=== PATIENT | female | born 1940 | race Caucasian/White ===

== ENCOUNTER 2016-07-28 22:26 | Emergency (ER) | payer OTHER ==
[~2016-07-28] VITALS: Ht 154.9 cm; Wt 90.9 kg
[~2016-07-28 22:26] MED LIST: AEROECLIPSE1 EACH MC; ALEVE220 M2 PO; CEFUROXIME500 MG PO; HUMULIN N100 UNIT/2 SQ; IPRATR-ALBUTEROL3 ML IH; LANTUS 3 M100 UNITS1 SC; LASIX20 MG PO; LEVAQUIN500 MG PO; LEVEMIR FL100 UNIT/1 SC; LISINOPRIL20 MG PO; LISINOPRIL40 MG PO; MUCINEX600 MG PO; PAXIL20 MG PO; PREDNISONE20 MG PO; PROAIR HFA8.5 GM IH; SPIRIVA1 INHALATI IH
[2016-07-29 02:29] VITALS: BP 122/49
== END 2016-07-29 02:29 | disposition home or self-care (01) ==
LOC: EME 22:26
PROC: 0HQ1XZZ Repair Face Skin, External Approach (ICD-10-PCS; principal; 2016-07-29)
DX: S01.81XA Laceration without foreign body of other part of head, initial encounter (principal); E11.9 Type 2 diabetes mellitus without complications; I10 Essential (primary) hypertension; W05.0XXA Fall from non-moving wheelchair, initial encounter; Z88.2 Allergy status to sulfonamides; F17.200 Nicotine dependence, unspecified, uncomplicated
CPT/HCPCS: 70450; 72125; 99281; 99285

== ENCOUNTER 2016-11-11 16:34 | Inpatient (IN) | payer OTHER ==
[~2016-11-11] VITALS: Ht 154.9 cm; Wt 93.3 kg
[2016-11-11 17:53] LABS: EOSINOPHIL (%) 2.9 % (0-5); EOSINOPHIL COUNT 0.2 K/uL (0-0.3); HEMATOCRIT 32.9 % (36.0-46.0); IMMATURE GRANULOCYTE (%) 0.4 % (0.0-0.7); INSTRUMENT ABS NEUTROPHIL CT 5.7 K/uL; LYMPHOCYTE COUNT 1.2 K/uL (1.0-2.8); MCH 28.8 PG (29.0-34.0); MCHC 32.2 G/DL (30.0-36.0); MCV 89.4 FL (83-99); MEAN PLAT.VOLUME 10.5 uM^3 (9.5-12.4); MONOCYTE (%) 7.9 % (3-12); MONOCYTE COUNT 0.6 K/uL (0-0.8); NEUTROPHIL (%) 72.9 % (45-76); NEUTROPHIL COUNT 5.7 K/uL (1.8-6.4); PLATELET COUNT 220 K/uL (156-360); RBC DIS.WIDTH-CV 14.9 % (11.8-14.6); RBC DIS.WIDTH-SD 48.8 % (39-53); RED BLOOD COUNT 3.68 M/uL (3.80-5.20); WHITE BLOOD COUNT 7.8 K/uL (4.1-10.2)
[2016-11-11 18:01] LABS: CHLORIDE 114 mEq/L (99-109); SODIUM 138 mEq/L (136-147)
[2016-11-11 18:03] LABS: GLUCOSE 135 mg/dL (70-99)
[2016-11-11 18:04] LABS: ANION GAP 6 MEQ/L (2-14)
[2016-11-11 18:05] LABS: TOTAL BILIRUBIN 0.2 mg/dL (0.0-1.0)
[2016-11-11 18:07] LABS: ALKALINE PHOSPHATASE 116 IU/L (3-129); GFR ESTIMATE (CALCULATED) 43 mL/min/
[2016-11-11 18:08] LABS: UREA NITROGEN (BUN) 44 mg/dL (9-23)
[2016-11-11 18:20] LABS: POTASSIUM 6.2 mEq/L (3.7-5.4)
[2016-11-11 20:37] LABS: MAGNESIUM 1.4 mg/dL (1.3-2.7)
[2016-11-11] MEDS ORDERED: HUMULIN N100 UNIT/2 SC (21:08)
[2016-11-11] MEDS ORDERED: FUROSEMIDE20 MG PO (21:08)
[2016-11-11] MEDS ORDERED: PRINIVIL10 MG PO (21:08)
[2016-11-11] MEDS ORDERED: LANTUS 3 M100 UNITS1 SC (21:08)
[2016-11-11 23:51] VITALS: BP 125/65
[2016-11-12] VITALS (16 sets, daily range): BP systolic 94–215; BP diastolic 46–101
[2016-11-12 00:04] LABS: POINT-OF-CARE METER ID UU14188625
[2016-11-12 00:44] LABS: CHLORIDE 117 mEq/L (99-109); POTASSIUM 5.8 mEq/L (3.7-5.4); SODIUM 138 mEq/L (136-147)
[2016-11-12 00:45] LABS: MAGNESIUM 1.2 mg/dL (1.3-2.7)
[2016-11-12 00:46] LABS: GLUCOSE 115 mg/dL (70-99)
[2016-11-12 00:48] LABS: ANION GAP 7 MEQ/L (2-14)
[2016-11-12 00:50] LABS: GFR ESTIMATE (CALCULATED) 47 mL/min/
[2016-11-12 00:51] LABS: UREA NITROGEN (BUN) 41 mg/dL (9-23)
[2016-11-12 06:11] LABS: HEMATOCRIT 28.3 % (36.0-46.0); MCHC 32.5 G/DL (30.0-36.0); MCV 89.3 FL (83-99); PLATELET COUNT 202 K/uL (156-360); RBC DIS.WIDTH-CV 14.9 % (11.8-14.6); RBC DIS.WIDTH-SD 49.4 % (39-53); RED BLOOD COUNT 3.17 M/uL (3.80-5.20); WHITE BLOOD COUNT 6.2 K/uL (4.1-10.2)
[2016-11-12 06:41] LABS: ANION GAP 5 MEQ/L (2-14); CHLORIDE 115 MEQ/L (99-109); GFR ESTIMATE (CALCULATED) 47 mL/min/; GLUCOSE 98 mg/dL (70-99); MAGNESIUM 1.4 mg/dl (1.3-2.7); SAMPLE HEMOLYSIS CHECK 0; SAMPLE ICTERIC CHECK 0; SAMPLE LIPEMIA CHECK 0; SODIUM 140 MEQ/L (136-147); UREA NITROGEN (BUN) 40 mg/dL (9-23)
[2016-11-12 06:42] LABS: POTASSIUM 6.2 MEQ/L (3.7-5.4)
[2016-11-12 07:09] LABS: Estimated Average Glucose 137 mg/dL (70-123); HEMOGLOBIN A1c (GLYCOHEMOGLOB) 6.4 % HGB (Below 5.7)
[2016-11-12 11:09] LABS: BASE EXCESS -7.2 mEq/L (-3 to +3); BICARBONATE 19.7 mEq/L (22-26); CARBOXY HGB 1.5 % (0-5); METHEMOGLOBIN 1.7 % (0-1.5); PCO2 45 mm Hg (35-45); PO2 374 mm Hg (80-100); pH 7.25 (7.35-7.45)
[2016-11-12 11:10] LABS: COMMENTS - BLOOD GASES A+C+; DEVICE NRB; FI02 100 %; O2 FLOW 15 L/MIN; SITE LR; TOTAL RESP RATE 40 resp/min
[2016-11-12 11:29] LABS: POINT-OF-CARE METER ID UU14188625
[2016-11-12 12:38] LABS: ANION GAP 7 MEQ/L (2-14); CHLORIDE 115 MEQ/L (99-109); GFR ESTIMATE (CALCULATED) 47 mL/min/; GLUCOSE 127 mg/dL (70-99); POTASSIUM 5.9 MEQ/L (3.7-5.4); SAMPLE HEMOLYSIS CHECK 0; SAMPLE ICTERIC CHECK 0; SAMPLE LIPEMIA CHECK 0; SODIUM 140 MEQ/L (136-147); UREA NITROGEN (BUN) 42 mg/dL (9-23)
[2016-11-12 12:46] LABS: TROP-I INTERPRETATION POSITIVE; TROPONIN-I 15.54 ng/mL (0.0-0.30)
[2016-11-12 14:04] LABS: METH RESISTANT S AUREUS PCR NEGATIVE (NEGATIVE)
[2016-11-12 14:05] LABS: PROBE CHECK PASS; SPECIMEN PROCESSING CONTROL PASS
[2016-11-12 15:50] LABS: PROTHROMBIN TIME 10.6 (9.2-11.2); PTT 20.4 (25-32)
[2016-11-12 17:39] LABS: ANION GAP 9 MEQ/L (2-14); CHLORIDE 112 MEQ/L (99-109); GFR ESTIMATE (CALCULATED) 43 mL/min/; GLUCOSE 181 mg/dL (70-99); POTASSIUM 5.5 MEQ/L (3.7-5.4); SAMPLE HEMOLYSIS CHECK 0; SAMPLE ICTERIC CHECK 0; SAMPLE LIPEMIA CHECK 0; SODIUM 139 MEQ/L (136-147); UREA NITROGEN (BUN) 42 mg/dL (9-23)
[2016-11-12 22:10] LABS: ANION GAP 8 MEQ/L (2-14); CHLORIDE 110 MEQ/L (99-109); POTASSIUM 5.4 MEQ/L (3.7-5.4); SAMPLE HEMOLYSIS CHECK 0; SAMPLE ICTERIC CHECK 0; SAMPLE LIPEMIA CHECK 0; SODIUM 138 MEQ/L (136-147)
[2016-11-12 22:16] LABS: GFR ESTIMATE (CALCULATED) 39 mL/min/; UREA NITROGEN (BUN) 46 mg/dL (9-23)
[2016-11-12 22:21] LABS: TROP-I INTERPRETATION POSITIVE; TROPONIN-I 17.13 ng/mL (0.0-0.30)
[2016-11-12 22:40] LABS: GLUCOSE 308 mg/dL (70-99)
[2016-11-13] VITALS (23 sets, daily range): BP systolic 85–154; BP diastolic 38–75
[2016-11-13 04:55] LABS: EOSINOPHIL (%) 0 % (0-5); HEMATOCRIT 29.8 % (36.0-46.0); IMMATURE GRANULOCYTE (%) 0.4 % (0.0-0.7); INSTRUMENT ABS NEUTROPHIL CT 6.1 K/uL; LYMPHOCYTE COUNT 0.6 K/uL (1.0-2.8); MCH 28.8 PG (29.0-34.0); MCHC 32.6 G/DL (30.0-36.0); MCV 88.4 FL (83-99); MONOCYTE (%) 0.7 % (3-12); MONOCYTE COUNT 0.1 K/uL (0-0.8); NEUTROPHIL COUNT 6.1 K/uL (1.8-6.4); PLATELET COUNT 172 K/uL (156-360); RBC DIS.WIDTH-CV 14.6 % (11.8-14.6); RBC DIS.WIDTH-SD 47.2 % (39-53); RED BLOOD COUNT 3.37 M/uL (3.80-5.20); WHITE BLOOD COUNT 6.8 K/uL (4.1-10.2)
[2016-11-13 05:09] LABS: CHLORIDE 113 mEq/L (99-109); POTASSIUM 5.2 mEq/L (3.7-5.4); SODIUM 142 mEq/L (136-147)
[2016-11-13 05:11] LABS: GLUCOSE 254 mg/dL (70-99)
[2016-11-13 05:13] LABS: ANION GAP 9 MEQ/L (2-14)
[2016-11-13 05:15] LABS: GFR ESTIMATE (CALCULATED) 36 mL/min/
[2016-11-13 05:16] LABS: UREA NITROGEN (BUN) 52 mg/dL (9-23)
[2016-11-13 05:27] LABS: TROP-I INTERPRETATION POSITIVE; TROPONIN-I 20.99 ng/mL (0.0-0.30)
[2016-11-13 12:53] LABS: POINT-OF-CARE METER ID UU13113748
[2016-11-13 13:59] LABS: TROP-I INTERPRETATION POSITIVE; TROPONIN-I 16.18 ng/mL (0.0-0.30)
[2016-11-13 17:03] LABS: POINT-OF-CARE METER ID UU13113748
[2016-11-13 22:36] LABS: POINT-OF-CARE METER ID UU13113748
[2016-11-14] VITALS (11 sets, daily range): BP systolic 100–137; BP diastolic 43–74
[2016-11-14 10:52] LABS: POINT-OF-CARE METER ID UU14162636
[2016-11-14 11:22] LABS: ANION GAP 12 MEQ/L (2-14); CHLORIDE 105 MEQ/L (99-109); GFR ESTIMATE (CALCULATED) 39 mL/min/; GLUCOSE 296 mg/dL (70-99); MAGNESIUM 1.5 mg/dl (1.3-2.7); POTASSIUM 4.4 MEQ/L (3.7-5.4); SAMPLE HEMOLYSIS CHECK 0; SAMPLE ICTERIC CHECK 0; SAMPLE LIPEMIA CHECK 0; SODIUM 135 MEQ/L (136-147); UREA NITROGEN (BUN) 75 mg/dL (9-23)
[2016-11-14 12:45] LABS: POINT-OF-CARE METER ID UU13113748
[2016-11-14 16:40] LABS: POINT-OF-CARE USER ID ENVKC36
[2016-11-15 00:05] VITALS: BP 127/60
[2016-11-15 04:24] LABS: HEMATOCRIT 24.7 % (36.0-46.0); MCHC 33.2 G/DL (30.0-36.0); MCV 87.3 FL (83-99); MEAN PLAT.VOLUME 11.2 uM^3 (9.5-12.4); PLATELET COUNT 216 K/uL (156-360); RBC DIS.WIDTH-CV 14.8 % (11.8-14.6); RBC DIS.WIDTH-SD 47.3 % (39-53); RED BLOOD COUNT 2.83 M/uL (3.80-5.20); WHITE BLOOD COUNT 8.8 K/uL (4.1-10.2)
[2016-11-15 04:33] VITALS: BP 124/58
[2016-11-15 04:36] LABS: CHLORIDE 109 mEq/L (99-109); POTASSIUM 4.3 mEq/L (3.7-5.4); SODIUM 138 mEq/L (136-147)
[2016-11-15 04:37] LABS: MAGNESIUM 1.2 mg/dL (1.3-2.7)
[2016-11-15 04:38] LABS: GLUCOSE 205 mg/dL (70-99)
[2016-11-15 04:39] LABS: ANION GAP 8 MEQ/L (2-14)
[2016-11-15 04:42] LABS: GFR ESTIMATE (CALCULATED) 36 mL/min/
[2016-11-15 04:43] LABS: UREA NITROGEN (BUN) 85 mg/dL (9-23)
[2016-11-15 04:48] LABS: TROP-I INTERPRETATION POSITIVE
[2016-11-15 07:53] VITALS: BP 124/60
[2016-11-15 11:21] VITALS: BP 110/55
[2016-11-15 11:31] LABS: POINT-OF-CARE METER ID UU13113698
[2016-11-15 15:34] VITALS: BP 137/62
[2016-11-15 16:40] LABS: POINT-OF-CARE METER ID UU13113698
[2016-11-15 19:32] VITALS: BP 139/63
[2016-11-16] VITALS: BP 128/58
[2016-11-16 05:40] LABS: EOSINOPHIL (%) 0 % (0-5); HEMATOCRIT 24.3 % (36.0-46.0); IMMATURE GRANULOCYTE (%) 0.9 % (0.0-0.7); IMMATURE GRANULOCYTE COUNT 0.1 K/uL; INSTRUMENT ABS NEUTROPHIL CT 5.3 K/uL; MCHC 33.7 G/DL (30.0-36.0); MEAN PLAT.VOLUME 12.3 uM^3 (9.5-12.4); MONOCYTE (%) 4.8 % (3-12); MONOCYTE COUNT 0.3 K/uL (0-0.8); NEUTROPHIL (%) 79.1 % (45-76); NEUTROPHIL COUNT 5.3 K/uL (1.8-6.4); PLATELET COUNT 195 K/uL (156-360); RBC DIS.WIDTH-SD 47.9 % (39-53); RED BLOOD COUNT 2.73 M/uL (3.80-5.20); WHITE BLOOD COUNT 6.7 K/uL (4.1-10.2)
[2016-11-16 06:11] LABS: ANION GAP 10 MEQ/L (2-14); CHLORIDE 105 MEQ/L (99-109); GFR ESTIMATE (CALCULATED) 36 mL/min/; GLUCOSE 199 mg/dL (70-99); MAGNESIUM 1.6 mg/dl (1.3-2.7); POTASSIUM 4.7 MEQ/L (3.7-5.4); SAMPLE HEMOLYSIS CHECK 0; SAMPLE ICTERIC CHECK 0; SAMPLE LIPEMIA CHECK 0; SODIUM 139 MEQ/L (136-147); UREA NITROGEN (BUN) 86 mg/dL (9-23)
[2016-11-16 07:18] VITALS: BP 113/57
[2016-11-16 11:20] VITALS: BP 148/67
[2016-11-16 11:45] LABS: POINT-OF-CARE METER ID UU13113698
[2016-11-16 15:08] VITALS: BP 147/70
[2016-11-16 16:49] LABS: POINT-OF-CARE METER ID UU13113698
[2016-11-16 19:28] VITALS: BP 170/78
[2016-11-16 23:45] VITALS: BP 138/64
[2016-11-17 05:50] LABS: EOSINOPHIL (%) 0 % (0-5); HEMATOCRIT 24.6 % (36.0-46.0); IMMATURE GRANULOCYTE (%) 1.1 % (0.0-0.7); IMMATURE GRANULOCYTE COUNT 0.1 K/uL; INSTRUMENT ABS NEUTROPHIL CT 5.9 K/uL; LYMPHOCYTE COUNT 1.7 K/uL (1.0-2.8); MCHC 33.7 G/DL (30.0-36.0); MCV 88.8 FL (83-99); MEAN PLAT.VOLUME 11.9 uM^3 (9.5-12.4); MONOCYTE (%) 8.4 % (3-12); MONOCYTE COUNT 0.7 K/uL (0-0.8); NEUTROPHIL (%) 69.8 % (45-76); NEUTROPHIL COUNT 5.9 K/uL (1.8-6.4); PLATELET COUNT 212 K/uL (156-360); RBC DIS.WIDTH-CV 14.6 % (11.8-14.6); RBC DIS.WIDTH-SD 47.5 % (39-53); RED BLOOD COUNT 2.77 M/uL (3.80-5.20); WHITE BLOOD COUNT 8.4 K/uL (4.1-10.2)
[2016-11-17 06:36] LABS: ANION GAP 10 MEQ/L (2-14); CHLORIDE 104 MEQ/L (99-109); GFR ESTIMATE (CALCULATED) 43 mL/min/; GLUCOSE 220 mg/dL (70-99); POTASSIUM 4.5 MEQ/L (3.7-5.4); SAMPLE HEMOLYSIS CHECK 0; SAMPLE ICTERIC CHECK 0; SAMPLE LIPEMIA CHECK 0; SODIUM 141 MEQ/L (136-147); UREA NITROGEN (BUN) 90 mg/dL (9-23)
[2016-11-17 07:22] VITALS: BP 113/54
[2016-11-17 08:41] LABS: POINT-OF-CARE METER ID UU13113698; POINT-OF-CARE USER ID NUTSLF44
[2016-11-17 10:57] VITALS: BP 118/55
[2016-11-17] MEDS ORDERED: ATORVASTATIN CA40 MG PO (12:22)
[2016-11-17] MEDS ORDERED: CLOPIDOGREL75 MG PO (12:22)
[2016-11-17] MEDS ORDERED: NICOTINE PATCH1 EAC2 TD (12:22)
[2016-11-17] MEDS ORDERED: IMDUR30 MG PO (12:22)
[2016-11-17] MEDS ORDERED: CARVEDILOL3.125 MG PO (12:22)
[2016-11-17] MEDS ORDERED: LISINOPRIL2.5 MG PO (12:23)
[2016-11-17] MEDS ORDERED: ASPIRIN81 M2 PO (12:23)
[2016-11-17] MEDS ORDERED: FUROSEMIDE20 MG PO (12:24)
[2016-11-17] MEDS ORDERED: PREDNISONE20 MG PO (12:25)
[2016-11-17] MEDS ORDERED: LEVEMIR100 UNIT/2 SC (12:25)
[2016-11-17] MEDS ORDERED: DOCUSATE SODIU100 MG PO (12:25)
[2016-11-17] MEDS ORDERED: NOVOLOG PE100 UNITS/ SC ×2 (12:26)
[2016-11-17] MEDS ORDERED: LORAZEPAM0.5 MG PO (12:30)
[2016-11-17 12:36] LABS: POINT-OF-CARE METER ID UU13113698; POINT-OF-CARE USER ID NUTSLF44
== END 2016-11-17 15:21 | DRG 280 ==
LOC: EME 16:34 → EDOF 19:54 → 4EAST 19:54 → 5SOUTH 19:54 → 4WEST 19:54 → 5SOUTH 22:44 → 4WEST 11-12 11:46 → 4EAST 11-14 13:49
PROVIDERS: Emergency Medicine; Hospitalist; Internal Medicine; Internal Medicine Critical Care Medicine; Internal Medicine Nephrology; Physician Assistant Medical
DX: I21.4 Non-ST elevation (NSTEMI) myocardial infarction (principal); J96.01 Acute respiratory failure with hypoxia; J96.02 Acute respiratory failure with hypercapnia; I50.23 Acute on chronic systolic (congestive) heart failure; E87.4 Mixed disorder of acid-base balance; I83.009 Varicose veins of unspecified lower extremity with ulcer of unspecified site; E66.01 Morbid (severe) obesity due to excess calories; I13.0 Hypertensive heart and chronic kidney disease with heart failure and stage 1 through stage 4 chronic kidney disease, or unspecified chronic kidney disease; J44.1 Chronic obstructive pulmonary disease with (acute) exacerbation; E87.5 Hyperkalemia; D63.8 Anemia in other chronic diseases classified elsewhere; L97.509 Non-pressure chronic ulcer of other part of unspecified foot with unspecified severity; E11.21 Type 2 diabetes mellitus with diabetic nephropathy; E11.621 Type 2 diabetes mellitus with foot ulcer; E11.65 Type 2 diabetes mellitus with hyperglycemia; E11.319 Type 2 diabetes mellitus with unspecified diabetic retinopathy without macular edema; L03.115 Cellulitis of right lower limb; N18.3 Chronic kidney disease, stage 3 (moderate); M19.90 Unspecified osteoarthritis, unspecified site; R52 Pain, unspecified; F17.210 Nicotine dependence, cigarettes, uncomplicated; I89.0 Lymphedema, not elsewhere classified; H54.0 Blindness, both eyes; I87.2 Venous insufficiency (chronic) (peripheral); E78.5 Hyperlipidemia, unspecified; I87.8 Other specified disorders of veins; B87.9 Myiasis, unspecified; L30.9 Dermatitis, unspecified; N20.0 Calculus of kidney; F41.8 Other specified anxiety disorders; I25.10 Atherosclerotic heart disease of native coronary artery without angina pectoris; R32 Unspecified urinary incontinence; R53.1 Weakness; Z96.652 Presence of left artificial knee joint; Z68.39 Body mass index [BMI] 39.0-39.9, adult; Z90.710 Acquired absence of both cervix and uterus; Z88.2 Allergy status to sulfonamides; Z79.4 Long term (current) use of insulin; Z90.5 Acquired absence of kidney; Z82.49 Family history of ischemic heart disease and other diseases of the circulatory system; Z91.14 Patient's other noncompliance with medication regimen; I25.2 Old myocardial infarction
CPT/HCPCS: 36600; 71010; 73590; 73630; 76770; 80048; 80048 91; 80053; 82436; 82575; 82803; 82948; 83036; 83605; 83735; 83880; 83935; 84100; 84133; 84300; 84484; 85025; 85027; 85610; 85730; 87040; 87641; 93005; 93306; 93971; 94002; 94640; 94640 76; 94644; 97530 GP; 99202; 99281; 99285; J0295; J0610; J0696; J1644; J1815; J1940; J2270; J2920; J2930; J7050; J7512

== ENCOUNTER 2016-11-29 12:22 | Inpatient (IN) | payer OTHER ==
[~2016-11-29] VITALS: Ht 154.9 cm; Wt 86.3 kg
[2016-11-29] VITALS (13 sets, daily range): BP systolic 91–151; BP diastolic 38–89
[~2016-11-29 12:22] MED LIST changes: +ASPIRIN81 M2 PO; +ATORVASTATIN CA40 MG PO; +CARVEDILOL3.125 MG PO; +CLOPIDOGREL75 MG PO; +DOCUSATE SODIU100 MG PO; +FUROSEMIDE20 MG PO; +HUMULIN N100 UNIT/2 SC; +IMDUR30 MG PO; +LEVEMIR100 UNIT/2 SC; +LISINOPRIL2.5 MG PO; +LORAZEPAM0.5 MG PO; +NICOTINE PATCH1 EAC2 TD; +NOVOLOG PE100 UNITS/ SC; +PRINIVIL10 MG PO
[2016-11-29 13:12] LABS: INTER. NORMALIZED RATIO 1.1; PROTHROMBIN TIME 11.8 SEC (10.2-12.9)
[2016-11-29 13:14] LABS: CHLORIDE 106 mEq/L (99-109); POTASSIUM 5.1 mEq/L (3.7-5.4); SODIUM 138 mEq/L (136-147)
[2016-11-29 13:15] LABS: PTT 21.8 SEC (25-37)
[2016-11-29 13:17] LABS: GLUCOSE 158 mg/dL (70-99)
[2016-11-29 13:18] LABS: ANION GAP 9 MEQ/L (2-14); EOSINOPHIL (%) 0.6 % (0-5); EOSINOPHIL COUNT 0.1 K/uL (0-0.3); HEMATOCRIT 17.2 % (36.0-46.0); IMMATURE GRANULOCYTE (%) 0.8 % (0.0-0.7); IMMATURE GRANULOCYTE COUNT 0.1 K/uL; INSTRUMENT ABS NEUTROPHIL CT 7.8 K/uL; LYMPHOCYTE COUNT 2.2 K/uL (1.0-2.8); MCHC 31.4 G/DL (30.0-36.0); MEAN PLAT.VOLUME 11.6 uM^3 (9.5-12.4); MONOCYTE (%) 6.1 % (3-12); MONOCYTE COUNT 0.7 K/uL (0-0.8); NEUTROPHIL (%) 72.2 % (45-76); NEUTROPHIL COUNT 7.8 K/uL (1.8-6.4); PLATELET COUNT 244 K/uL (156-360); RBC DIS.WIDTH-CV 17.2 % (11.8-14.6); RBC DIS.WIDTH-SD 54.2 % (39-53); WHITE BLOOD COUNT 10.8 K/uL (4.1-10.2)
[2016-11-29 13:19] LABS: MCV 95.6 FL (83-99); TOTAL BILIRUBIN 0.3 mg/dL (0.0-1.0)
[2016-11-29 13:20] LABS: ALKALINE PHOSPHATASE 69 IU/L (3-129)
[2016-11-29 13:21] LABS: GFR ESTIMATE (CALCULATED) 39 mL/min/
[2016-11-29 13:22] LABS: DIRECT BILIRUBIN 0.2 mg/dL (0.0-0.3); UREA NITROGEN (BUN) 131 mg/dL (9-23)
[2016-11-29 13:24] LABS: LIPASE 139 U/L (1.0-51.0)
[2016-11-29 13:26] LABS: TROP-I INTERPRETATION POSITIVE
[2016-11-29 13:28] LABS: TROPONIN-I 1.49 ng/mL (0.0-0.30)
[2016-11-29 16:02] LABS: HEMATOCRIT 27.4 % (36.0-46.0); MCH 30.6 PG (29.0-34.0); MCHC 33.6 G/DL (30.0-36.0); MEAN PLAT.VOLUME 12.4 uM^3 (9.5-12.4); NRBC (%) 0.3 /100 WBC (0-0); PLATELET COUNT 257 K/uL (156-360); RBC DIS.WIDTH-CV 15.9 % (11.8-14.6); RBC DIS.WIDTH-SD 48.7 % (39-53); WHITE BLOOD COUNT 15.9 K/uL (4.1-10.2)
[2016-11-29 16:03] LABS: RED BLOOD COUNT 3.01 M/uL (3.80-5.20)
[2016-11-29] MEDS ORDERED: AQUAPHOR W-NAT50 GM TP (17:42)
[2016-11-29] MEDS ORDERED: IRON325 M1 PO (17:45)
[2016-11-29] MEDS ORDERED: GLUCOSE GEL15 GM PO (17:46)
[2016-11-29] MEDS ORDERED: LEVEMIR FL100 UNIT/1 SC (17:47)
[2016-11-29] MEDS ORDERED: ATIVAN0.5 MG PO ×2 (17:49)
[2016-11-29] MEDS ORDERED: SENNA S TABLET1 EACH PO (17:53)
[2016-11-29] MEDS ORDERED: TYLENOL REGULA325 MG PO (17:54)
[2016-11-29] MEDS ORDERED: VITAMIN B-12500 MC5 SL (17:55)
[2016-11-29 20:29] LABS: METH RESISTANT S AUREUS PCR NEGATIVE (NEGATIVE)
[2016-11-29 20:30] LABS: PROBE CHECK PASS; SPECIMEN PROCESSING CONTROL PASS
[2016-11-30] VITALS (17 sets, daily range): BP systolic 60–163; BP diastolic 28–91
[2016-11-30 00:47] LABS: HEMATOCRIT 35.2 % (36.0-46.0)
[2016-11-30 05:05] LABS: CHLORIDE 112 mEq/L (99-109); POTASSIUM 5.1 mEq/L (3.7-5.4); SODIUM 141 mEq/L (136-147)
[2016-11-30 05:08] LABS: ANION GAP 9 MEQ/L (2-14)
[2016-11-30 05:11] LABS: GFR ESTIMATE (CALCULATED) 39 mL/min/; GLUCOSE 54 mg/dL (70-99)
[2016-11-30 05:13] LABS: UREA NITROGEN (BUN) 115 mg/dL (9-23)
[2016-11-30 05:34] LABS: C DIFF TOXIN NEGATIVE (NEGATIVE)
[2016-11-30 05:35] LABS: PROBE CHECK PASS; SPECIMEN PROCESSING CONTROL PASS
[2016-11-30 08:40] LABS: HEMATOCRIT 33.3 % (36.0-46.0); MCH 29.6 PG (29.0-34.0); MCV 89.5 FL (83-99); MEAN PLAT.VOLUME 11.2 uM^3 (9.5-12.4); PLATELET COUNT 185 K/uL (156-360); RBC DIS.WIDTH-CV 17.6 % (11.8-14.6); RBC DIS.WIDTH-SD 53.1 % (39-53); WHITE BLOOD COUNT 14.9 K/uL (4.1-10.2)
[2016-11-30 08:43] LABS: RED BLOOD COUNT 3.72 M/uL (3.80-5.20)
[2016-11-30 08:44] LABS: POINT-OF-CARE METER ID UU13113731
[2016-11-30 12:12] LABS: POINT-OF-CARE METER ID UU14174217
[2016-11-30 13:14] LABS: HEMATOCRIT 39.6 % (36.0-46.0); MCHC 33.6 G/DL (30.0-36.0); MCV 89.4 FL (83-99); RBC DIS.WIDTH-SD 54.4 % (39-53); RED BLOOD COUNT 4.43 M/uL (3.80-5.20); WHITE BLOOD COUNT 25.5 K/uL (4.1-10.2)
[2016-11-30 13:29] LABS: PLAT.SUFFICIENCY ADEQUATE; PLATELET CLUMPS PRESENT - PLATELET COUNT APPEARS ADQ.; PLATELET COUNT UNABLE TO REPORT K/uL (156-360)
[2016-11-30 15:29] LABS: POINT-OF-CARE METER ID UU14174217
[2016-11-30 19:11] LABS: HEMATOCRIT 32.6 % (36.0-46.0); MCH 29.6 PG (29.0-34.0); MCHC 33.1 G/DL (30.0-36.0); MCV 89.3 FL (83-99); MEAN PLAT.VOLUME 10.7 uM^3 (9.5-12.4); PLATELET COUNT 172 K/uL (156-360); RBC DIS.WIDTH-CV 17.6 % (11.8-14.6); RBC DIS.WIDTH-SD 54.4 % (39-53); RED BLOOD COUNT 3.65 M/uL (3.80-5.20); WHITE BLOOD COUNT 21.8 K/uL (4.1-10.2)
[2016-12-01] VITALS (12 sets, daily range): BP systolic 109–134; BP diastolic 51–87
[2016-12-01 01:31] LABS: ADD MIUA? YES; BILIRUBIN NEGATIVE; BLOOD SMALL; COLOR YELLOW ((YELLOW)); GLUCOSE (STRIP) NEGATIVE; KETONES NEGATIVE; LEUKOCYTES NEGATIVE; NITRITE NEGATIVE; PROTEIN (STRIP) NEGATIVE; SPECIFIC GRAVITY 1.013 (1.000-1.030); UROBILINOGEN 0.2 MG/DL (0.2-1.0)
[2016-12-01 01:46] LABS: HEMATOCRIT 28.2 % (36.0-46.0); MCH 29.5 PG (29.0-34.0); MCV 89.5 FL (83-99); MEAN PLAT.VOLUME 11.1 uM^3 (9.5-12.4); PLATELET COUNT 162 K/uL (156-360); RBC DIS.WIDTH-CV 17.2 % (11.8-14.6); RBC DIS.WIDTH-SD 54.4 % (39-53); RED BLOOD COUNT 3.15 M/uL (3.80-5.20); WHITE BLOOD COUNT 15.6 K/uL (4.1-10.2)
[2016-12-01 01:57] LABS: BACTERIA NONE SEEN /HPF; EPITHELIAL CELLS RARE /HPF; HYALINE CASTS 0-5 /LPF; MUCUS NONE SEEN /LPF; RED BLOOD CELLS 0-5 /HPF (0-5); WHITE BLOOD CELLS 0-5 /HPF (0-5)
[2016-12-01 06:31] LABS: POINT-OF-CARE METER ID UU13113731; POINT-OF-CARE USER ID PHATLC
[2016-12-01 08:38] LABS: ANION GAP 10 MEQ/L (2-14); CHLORIDE 108 MEQ/L (99-109); POTASSIUM 4.6 MEQ/L (3.7-5.4); SAMPLE HEMOLYSIS CHECK 0; SAMPLE ICTERIC CHECK 0; SAMPLE LIPEMIA CHECK 0; SODIUM 141 MEQ/L (136-147)
[2016-12-01 08:44] LABS: GFR ESTIMATE (CALCULATED) 36 mL/min/; UREA NITROGEN (BUN) 80 mg/dL (9-23)
[2016-12-01 08:49] LABS: HEMATOCRIT 29.2 % (36.0-46.0); MCH 30.5 PG (29.0-34.0); MCHC 33.6 G/DL (30.0-36.0); MEAN PLAT.VOLUME 11.3 uM^3 (9.5-12.4); PLATELET COUNT 149 K/uL (156-360); RBC DIS.WIDTH-CV 17.3 % (11.8-14.6); RBC DIS.WIDTH-SD 55.1 % (39-53); RED BLOOD COUNT 3.21 M/uL (3.80-5.20); WHITE BLOOD COUNT 14.2 K/uL (4.1-10.2)
[2016-12-01 08:50] LABS: GLUCOSE 284 mg/dL (70-99)
[2016-12-01 12:57] LABS: HEMATOCRIT 28.1 % (36.0-46.0); MCH 30.3 PG (29.0-34.0); MCHC 32.7 G/DL (30.0-36.0); MCV 92.4 FL (83-99); MEAN PLAT.VOLUME 10.9 uM^3 (9.5-12.4); PLATELET COUNT 164 K/uL (156-360); RBC DIS.WIDTH-CV 17.2 % (11.8-14.6); RBC DIS.WIDTH-SD 56.2 % (39-53); RED BLOOD COUNT 3.04 M/uL (3.80-5.20); WHITE BLOOD COUNT 12.1 K/uL (4.1-10.2)
[2016-12-01 13:08] LABS: POINT-OF-CARE METER ID UU14174217
[2016-12-01 13:49] LABS: POINT-OF-CARE METER ID UU14107333; POINT-OF-CARE USER ID OPEBLP59
[2016-12-01 14:16] LABS: POINT-OF-CARE METER ID UU13113819
[2016-12-01 15:17] LABS: POINT-OF-CARE METER ID UU13113819; POINT-OF-CARE USER ID 515036437
[2016-12-01 18:06] LABS: POINT-OF-CARE METER ID UU13113748
[2016-12-01 19:00] LABS: HEMATOCRIT 29.9 % (36.0-46.0); MCH 29.4 PG (29.0-34.0); MCHC 32.1 G/DL (30.0-36.0); MCV 91.4 FL (83-99); RBC DIS.WIDTH-SD 54.5 % (39-53); RED BLOOD COUNT 3.27 M/uL (3.80-5.20); WHITE BLOOD COUNT 12.6 K/uL (4.1-10.2)
[2016-12-01 19:22] LABS: MEAN PLAT.VOLUME 11.1 uM^3 (9.5-12.4); PLAT.SUFFICIENCY DECREASED; PLATELET COUNT 133 K/uL (156-360)
[2016-12-01 21:36] LABS: POINT-OF-CARE METER ID UU14208751
[2016-12-02] VITALS (11 sets, daily range): BP systolic 101–136; BP diastolic 45–68
[2016-12-02 01:30] LABS: HEMATOCRIT 29.7 % (36.0-46.0); MCH 29.4 PG (29.0-34.0); MCHC 32.3 G/DL (30.0-36.0); MCV 90.8 FL (83-99); MEAN PLAT.VOLUME 10.9 uM^3 (9.5-12.4); PLATELET COUNT 162 K/uL (156-360); RBC DIS.WIDTH-CV 16.5 % (11.8-14.6); RBC DIS.WIDTH-SD 52.7 % (39-53); RED BLOOD COUNT 3.27 M/uL (3.80-5.20); WHITE BLOOD COUNT 10.5 K/uL (4.1-10.2)
[2016-12-02 07:39] LABS: EOSINOPHIL COUNT 0.2 K/uL (0-0.3); HEMATOCRIT 27.4 % (36.0-46.0); IMMATURE GRANULOCYTE (%) 0.4 % (0.0-0.7); INSTRUMENT ABS NEUTROPHIL CT 7.3 K/uL; LYMPHOCYTE COUNT 1.2 K/uL (1.0-2.8); MCH 30.4 PG (29.0-34.0); MCHC 32.8 G/DL (30.0-36.0); MCV 92.6 FL (83-99); MEAN PLAT.VOLUME 10.5 uM^3 (9.5-12.4); MONOCYTE (%) 6.9 % (3-12); MONOCYTE COUNT 0.6 K/uL (0-0.8); NEUTROPHIL (%) 78.1 % (45-76); NEUTROPHIL COUNT 7.3 K/uL (1.8-6.4); PLATELET COUNT 152 K/uL (156-360); RBC DIS.WIDTH-CV 16.9 % (11.8-14.6); RBC DIS.WIDTH-SD 55.2 % (39-53); RED BLOOD COUNT 2.96 M/uL (3.80-5.20); WHITE BLOOD COUNT 9.3 K/uL (4.1-10.2)
[2016-12-02 09:02] LABS: ANION GAP 7 MEQ/L (2-14); CHLORIDE 108 MEQ/L (99-109); GFR ESTIMATE (CALCULATED) 43 mL/min/; GLUCOSE 142 mg/dL (70-99); POTASSIUM 4.7 MEQ/L (3.7-5.4); SAMPLE HEMOLYSIS CHECK 1; SAMPLE ICTERIC CHECK 0; SAMPLE LIPEMIA CHECK 0; SODIUM 139 MEQ/L (136-147); UREA NITROGEN (BUN) 56 mg/dL (9-23)
[2016-12-02 12:31] LABS: POINT-OF-CARE METER ID UU14174217
[2016-12-02 16:09] LABS: POINT-OF-CARE METER ID UU14162636
[2016-12-03 03:12] VITALS: BP 94/48
[2016-12-03 08:31] VITALS: BP 98/54
[2016-12-03 11:50] VITALS: BP 98/62
[2016-12-03 12:54] LABS: HEMATOCRIT 26.9 % (36.0-46.0); MCH 30.6 PG (29.0-34.0); MCHC 33.8 G/DL (30.0-36.0); MCV 90.6 FL (83-99); MEAN PLAT.VOLUME 10.4 uM^3 (9.5-12.4); PLATELET COUNT 162 K/uL (156-360); RBC DIS.WIDTH-CV 16.1 % (11.8-14.6); RBC DIS.WIDTH-SD 52.2 % (39-53); RED BLOOD COUNT 2.97 M/uL (3.80-5.20)
[2016-12-03] MEDS ORDERED: ADVAIR HFA120 INHALA IH (13:26)
[2016-12-03 15:12] VITALS: BP 122/59
[2016-12-03 15:38] LABS: POINT-OF-CARE USER ID PUTDRM
== END 2016-12-03 19:19 | DRG 377 ==
LOC: EME 12:22 → 4WEST 14:21 → EDOF 14:21 → CANRESERV 14:23 → ENRESERV 14:23 → EDOF 15:38 → ENRESERV 16:03 → 4WEST 18:07 → ENRESERV 12-02 15:44 → 4WEST 12-02 15:44 → ENRESERV 12-02 16:01 → 2EAST 12-02 17:36
PROVIDERS: Emergency Medicine; Hospitalist; Internal Medicine; Internal Medicine Critical Care Medicine; Physician Assistant; Specialist
PROC: 0DB68ZX Excision of Stomach, Via Natural or Artificial Opening Endoscopic, Diagnostic (ICD-10-PCS; principal; 2016-12-01)
DX: K92.2 Gastrointestinal hemorrhage, unspecified (principal); J44.9 Chronic obstructive pulmonary disease, unspecified; E11.22 Type 2 diabetes mellitus with diabetic chronic kidney disease; D62 Acute posthemorrhagic anemia; I13.0 Hypertensive heart and chronic kidney disease with heart failure and stage 1 through stage 4 chronic kidney disease, or unspecified chronic kidney disease; N18.3 Chronic kidney disease, stage 3 (moderate); E11.21 Type 2 diabetes mellitus with diabetic nephropathy; E11.40 Type 2 diabetes mellitus with diabetic neuropathy, unspecified; E11.319 Type 2 diabetes mellitus with unspecified diabetic retinopathy without macular edema; D63.8 Anemia in other chronic diseases classified elsewhere; I21.4 Non-ST elevation (NSTEMI) myocardial infarction; F17.200 Nicotine dependence, unspecified, uncomplicated; E78.5 Hyperlipidemia, unspecified; I42.0 Dilated cardiomyopathy; E66.01 Morbid (severe) obesity due to excess calories; Z68.36 Body mass index [BMI] 36.0-36.9, adult; I25.10 Atherosclerotic heart disease of native coronary artery without angina pectoris; I27.2 Other secondary pulmonary hypertension; E86.1 Hypovolemia; H54.42 Blindness, left eye, normal vision right eye; Z66 Do not resuscitate; Z96.652 Presence of left artificial knee joint; Z90.5 Acquired absence of kidney; K25.9 Gastric ulcer, unspecified as acute or chronic, without hemorrhage or perforation; K29.70 Gastritis, unspecified, without bleeding; K22.10 Ulcer of esophagus without bleeding; I50.22 Chronic systolic (congestive) heart failure; R57.8 Other shock
CPT/HCPCS: 71010; 80048; 80076; 81003; 82948; 83605; 83690; 83735; 83880; 84484; 85014; 85018; 85025; 85025 91; 85027; 85610; 85730; 86900; 86901; 86920; 87040; 87493; 87641; 88305; 88342 TC; 93005; 94640; 94640 76; 94760; 94799; 99202; 99281; 99285; C9113; J0696; J1815; J2354; J2765; J7030; J7042; J7050; P9016

== ENCOUNTER 2017-03-27 00:02 | Inpatient (IN) | payer OTHER ==
[2017-03-27] VITALS (23 sets, daily range): BP systolic 129–166; BP diastolic 72–103
[~2017-03-27] VITALS: Ht 167.6 cm; Wt 100.7 kg
[~2017-03-27 00:02] MED LIST changes: +ADVAIR HFA120 INHALA IH; +AQUAPHOR W-NAT50 GM TP; +ATIVAN0.5 MG PO; +GLUCOSE GEL15 GM PO; +IRON325 M1 PO; +SENNA S TABLET1 EACH PO; +TYLENOL REGULA325 MG PO; +VITAMIN B-12500 MC5 SL
[2017-03-27 00:49] LABS: BASE EXCESS -6.1 mEq/L (-3 to +3); BICARBONATE 22.6 mEq/L (22-26); CARBOXY HGB 1.6 % (0-5); METHEMOGLOBIN 0.9 % (0-1.5); PO2 439 mm Hg (80-100); pH 7.17 (7.35-7.45)
[2017-03-27 00:50] LABS: HEMATOCRIT 34.2 % (36.0-46.0); MCH 28.2 PG (29.0-34.0); MEAN PLAT.VOLUME 10.7 uM^3 (9.5-12.4); RBC DIS.WIDTH-CV 13.9 % (11.8-14.6); RED BLOOD COUNT 3.76 M/uL (3.80-5.20); WHITE BLOOD COUNT 6.1 K/uL (4.1-10.2)
[2017-03-27 00:50] LABS: COMMENTS - BLOOD GASES C+; DEVICE VENT; FI02 100 %; MECHANICAL RATE 14 resp/min; MODE AC; PCO2 62 mm Hg (35-45); PEEP 5 CM/H20; SITE RR; TIDAL VOLUME 500 ML; TOTAL RESP RATE 14 resp/min
[2017-03-27 00:53] LABS: PLATELET COUNT 285 K/uL (156-360)
[2017-03-27 01:02] LABS: CHLORIDE 109 mEq/L (99-109); POTASSIUM 4.7 mEq/L (3.7-5.4); SODIUM 140 mEq/L (136-147)
[2017-03-27 01:05] LABS: ANION GAP 12 MEQ/L (2-14)
[2017-03-27 01:06] LABS: ADD MIUA? YES; BILIRUBIN NEGATIVE; BLOOD SMALL; COLOR YELLOW ((YELLOW)); GLUCOSE (STRIP) NEGATIVE; KETONES NEGATIVE; LEUKOCYTES TRACE; NITRITE NEGATIVE; PROTEIN (STRIP) >=500; SPECIFIC GRAVITY 1.015 (1.000-1.030)
[2017-03-27 01:07] LABS: GFR ESTIMATE (CALCULATED) 33 mL/min/
[2017-03-27 01:08] LABS: GLUCOSE 413 mg/dL (70-99); UREA NITROGEN (BUN) 34 mg/dL (9-23)
[2017-03-27 01:15] LABS: TROP-I INTERPRETATION NEGATIVE; TROPONIN-I 0.06 ng/mL (0.0-0.30)
[2017-03-27 01:26] LABS: BACTERIA 3+ /HPF; EPITHELIAL CELLS 2+ /HPF
[2017-03-27 01:27] LABS: MUCUS 3+ /LPF
[2017-03-27 01:31] LABS: CASTS NONE SEEN /LPF; CRYSTALS NONE SEEN; UCUL ADDED? YES; WHITE BLOOD CELLS 15-20 /HPF (0-5)
[2017-03-27 01:55] LABS: BASE EXCESS -1.9 mEq/L (-3 to +3); BICARBONATE 23.7 mEq/L (22-26); CARBOXY HGB 1.7 % (0-5); METHEMOGLOBIN 1.1 % (0-1.5)
[2017-03-27 01:56] LABS: COMMENTS - BLOOD GASES C+; DEVICE VENT; FI02 30 %; HEMOGLOBIN 9.4 (11.9-15.5); MECHANICAL RATE 22 resp/min; MODE AC; PCO2 43 mm Hg (35-45); PEEP 5 CM/H20; PO2 68 mm Hg (80-100); SITE RR; TIDAL VOLUME 500 ML; TOTAL RESP RATE 22 resp/min; pH 7.35 (7.35-7.45)
[2017-03-27] MEDS ORDERED: LISINOPRIL5 MG PO (02:43)
[2017-03-27] MEDS ORDERED: ISOSORBIDE DINI30 MG PO (02:43)
[2017-03-27] MEDS ORDERED: IMDUR30 MG PO (02:43)
[2017-03-27] MEDS ORDERED: LASIX20 MG PO (02:44)
[2017-03-27] MEDS ORDERED: OMEPRAZOLE20 MG PO (02:44)
[2017-03-27] MEDS ORDERED: COREG3.125 M1 PO (02:44)
[2017-03-27] MEDS ORDERED: VITAMIN D-32000 UNI2 PO (02:45)
[2017-03-27] MEDS ORDERED: ATORVASTATIN CA40 MG PO (02:45)
[2017-03-27] MEDS ORDERED: ZOLOFT100 MG PO (02:46)
[2017-03-27 03:41] LABS: METH RESISTANT S AUREUS PCR POSITIVE (NEGATIVE)
[2017-03-27 03:42] LABS: PROBE CHECK PASS
[2017-03-27 05:58] LABS: TRIGLYCERIDES 111 MG/DL (Normal: <150)
[2017-03-27 06:17] LABS: POINT-OF-CARE METER ID UU13113748; POINT-OF-CARE USER ID RADDRS44
[2017-03-27 12:06] LABS: POINT-OF-CARE METER ID UU13113731
[2017-03-27 13:55] LABS: MAGNESIUM 1.4 mg/dL (1.3-2.7)
[2017-03-27 17:37] LABS: POINT-OF-CARE METER ID UU13113731
[2017-03-28] VITALS (25 sets, daily range): BP systolic 0–172; BP diastolic 0–94
[2017-03-28 00:23] LABS: POINT-OF-CARE METER ID UU13113731; POINT-OF-CARE USER ID RADDRS44
[2017-03-28 04:39] LABS: CHLORIDE 110 mEq/L (99-109); POTASSIUM 4.2 mEq/L (3.7-5.4); SODIUM 139 mEq/L (136-147)
[2017-03-28 04:41] LABS: GLUCOSE 210 mg/dL (70-99)
[2017-03-28 04:43] LABS: ANION GAP 12 MEQ/L (2-14)
[2017-03-28 04:45] LABS: GFR ESTIMATE (CALCULATED) 52 mL/min/
[2017-03-28 04:46] LABS: UREA NITROGEN (BUN) 27 mg/dL (9-23)
[2017-03-28 05:49] LABS: BASE EXCESS -0.4 mEq/L (-3 to +3); BICARBONATE 21.7 mEq/L (22-26); CARBOXY HGB 1.3 % (0-5); METHEMOGLOBIN 1.4 % (0-1.5)
[2017-03-28 05:50] LABS: POINT-OF-CARE METER ID UU13113803; POINT-OF-CARE USER ID RADDRS44
[2017-03-28 05:50] LABS: DEVICE 840; FI02 30 %; MECHANICAL RATE 16 resp/min; MODE AC; PCO2 26 mm Hg (35-45); PEEP 5 CM/H20; PO2 129 mm Hg (80-100); SITE RR; TIDAL VOLUME 500 ML; TOTAL RESP RATE 16 resp/min; pH 7.53 (7.35-7.45)
[2017-03-28 06:02] LABS: EOSINOPHIL (%) 0 % (0-5); HEMATOCRIT 27.5 % (36.0-46.0); IMMATURE GRANULOCYTE (%) 0.6 % (0.0-0.7); IMMATURE GRANULOCYTE COUNT 0.1 K/uL; INSTRUMENT ABS NEUTROPHIL CT 7.3 K/uL; LYMPHOCYTE COUNT 0.8 K/uL (1.0-2.8); MCH 28.1 PG (29.0-34.0); MCHC 32.7 G/DL (30.0-36.0); MONOCYTE (%) 4.7 % (3-12); MONOCYTE COUNT 0.4 K/uL (0-0.8); NEUTROPHIL (%) 85.1 % (45-76); NEUTROPHIL COUNT 7.3 K/uL (1.8-6.4); RBC DIS.WIDTH-CV 14.2 % (11.8-14.6); RBC DIS.WIDTH-SD 44.6 % (39-53); WHITE BLOOD COUNT 8.6 K/uL (4.1-10.2)
[2017-03-28 06:03] LABS: MEAN PLAT.VOLUME 11.8 uM^3 (9.5-12.4); PLAT.SUFFICIENCY ADEQUATE; PLATELET COUNT 223 K/uL (156-360)
[2017-03-28 06:13] LABS: MCV 85.9 FL (83-99)
[2017-03-28 11:38] LABS: POINT-OF-CARE METER ID UU13113803
[2017-03-28 14:22] LABS: BASE EXCESS -1.4 mEq/L (-3 to +3); BICARBONATE 21.1 mEq/L (22-26); CARBOXY HGB 1.3 % (0-5); METHEMOGLOBIN 1.6 % (0-1.5); PCO2 27 mm Hg (35-45); PO2 127 mm Hg (80-100)
[2017-03-28 14:24] LABS: COMMENTS - BLOOD GASES C+; DEVICE VENT; FI02 30 %; MODE SPON; SITE LR; TIDAL VOLUME 540 ML; TOTAL RESP RATE 14 resp/min
[2017-03-28 14:25] LABS: PEEP 5 CM/H20; PRES. SUPPORT 10 CM/H2O
[2017-03-28 17:26] LABS: POINT-OF-CARE METER ID UU13113803
[2017-03-29] VITALS (18 sets, daily range): BP systolic 135–177; BP diastolic 59–88
[2017-03-29 00:39] LABS: POINT-OF-CARE METER ID UU13113803
[2017-03-29 05:25] LABS: EOSINOPHIL (%) 0 % (0-5); HEMATOCRIT 27.7 % (36.0-46.0); IMMATURE GRANULOCYTE (%) 0.4 % (0.0-0.7); INSTRUMENT ABS NEUTROPHIL CT 7.6 K/uL; LYMPHOCYTE COUNT 0.8 K/uL (1.0-2.8); MCH 29.1 PG (29.0-34.0); MCHC 32.5 G/DL (30.0-36.0); MCV 89.6 FL (83-99); MONOCYTE (%) 5.6 % (3-12); MONOCYTE COUNT 0.5 K/uL (0-0.8); NEUTROPHIL COUNT 7.6 K/uL (1.8-6.4); RBC DIS.WIDTH-CV 14.3 % (11.8-14.6); RBC DIS.WIDTH-SD 46.1 % (39-53); RED BLOOD COUNT 3.09 M/uL (3.80-5.20); WHITE BLOOD COUNT 8.9 K/uL (4.1-10.2)
[2017-03-29 05:58] LABS: ANION GAP 10 MEQ/L (2-14); CHLORIDE 109 MEQ/L (99-109); GFR ESTIMATE (CALCULATED) 43 mL/min/; GLUCOSE 226 mg/dL (70-99); POTASSIUM 4.6 MEQ/L (3.7-5.4); SAMPLE HEMOLYSIS CHECK 0; SAMPLE ICTERIC CHECK 0; SAMPLE LIPEMIA CHECK 0; SODIUM 139 MEQ/L (136-147); UREA NITROGEN (BUN) 35 mg/dL (9-23)
[2017-03-29 05:58] LABS: HEMATOLOGY COMMENT 1 SN; PLAT.SUFFICIENCY ADEQUATE
[2017-03-29 06:01] LABS: POINT-OF-CARE METER ID UU14162636
[2017-03-29 06:12] LABS: PLATELET COUNT UNABLE TO REPORT K/uL (156-360)
[2017-03-29 11:59] LABS: POINT-OF-CARE METER ID UU14162636
[2017-03-29 16:48] LABS: POINT-OF-CARE METER ID UU14162636
[2017-03-29 21:00] LABS: POINT-OF-CARE METER ID UU13113725
[2017-03-30 05:49] LABS: POINT-OF-CARE METER ID UU13113774
[2017-03-30 07:45] VITALS: BP 177/78
[2017-03-30] MEDS ORDERED: SPIRIVA1 INHALATI IH (11:47)
[2017-03-30] MEDS ORDERED: LEVEMIR FL100 UNIT/1 SC (11:47)
[2017-03-30] MEDS ORDERED: HUMULIN N100 UNIT/2 SC (11:47)
[2017-03-30] MEDS ORDERED: CENTRUM SILVER1 EAC4 PO (11:48)
[2017-03-30] MEDS ORDERED: LO-DOSE ASPIRIN81 M1 PO (11:48)
[2017-03-30] MEDS ORDERED: ADVAIR HFA120 INHAL1 IH (11:49)
[2017-03-30 16:17] VITALS: BP 140/67
[2017-03-31] VITALS: BP 171/73
[2017-03-31 01:58] VITALS: BP 171/73
[2017-03-31 06:19] LABS: POINT-OF-CARE METER ID UU13113725
[2017-03-31 06:22] LABS: HEMATOCRIT 28.3 % (36.0-46.0); MCH 27.9 PG (29.0-34.0); MCHC 31.8 G/DL (30.0-36.0); MCV 87.6 FL (83-99); MEAN PLAT.VOLUME 11.3 uM^3 (9.5-12.4); PLATELET COUNT 251 K/uL (156-360); RBC DIS.WIDTH-CV 13.7 % (11.8-14.6); RBC DIS.WIDTH-SD 43.2 % (39-53); RED BLOOD COUNT 3.23 M/uL (3.80-5.20); WHITE BLOOD COUNT 9.6 K/uL (4.1-10.2)
[2017-03-31 06:41] LABS: ANION GAP 7 MEQ/L (2-14); CHLORIDE 108 MEQ/L (99-109); GFR ESTIMATE (CALCULATED) 39 mL/min/; GLUCOSE 304 mg/dL (70-99); POTASSIUM 4.8 MEQ/L (3.7-5.4); SAMPLE HEMOLYSIS CHECK 0; SAMPLE ICTERIC CHECK 0; SAMPLE LIPEMIA CHECK 0; SODIUM 140 MEQ/L (136-147); UREA NITROGEN (BUN) 50 mg/dL (9-23)
[2017-03-31 08:00] VITALS: BP 168/70
[2017-03-31 10:12] LABS: POINT-OF-CARE METER ID UU13113725
[2017-03-31 10:13] LABS: POINT-OF-CARE METER ID UU13113725
[2017-03-31 10:14] LABS: POINT-OF-CARE METER ID UU13113725
[2017-03-31 11:12] LABS: POINT-OF-CARE METER ID UU13113774
[2017-03-31 16:24] VITALS: BP 149/69
[2017-03-31 21:37] LABS: POINT-OF-CARE METER ID UU13113725
[2017-04-01 00:22] VITALS: BP 133/62
[2017-04-01 06:47] LABS: POINT-OF-CARE METER ID UU13113725
[2017-04-01 07:06] VITALS: BP 118/58
[2017-04-01 09:40] LABS: POINT-OF-CARE METER ID UU13113774
[2017-04-01] MEDS ORDERED: SERTRALINE HCL100 MG PO (11:20)
[2017-04-01] MEDS ORDERED: PREDNISONE20 MG PO (11:24)
[2017-04-01] MEDS ORDERED: DUONEB 2.5-0.5 M3 ML AEROSOL (11:25)
[2017-04-01] MEDS ORDERED: FUROSEMIDE20 MG PO (11:46)
[2017-04-01 12:10] LABS: POINT-OF-CARE METER ID UU13113774
== END 2017-04-01 14:44 | DRG 208 ==
LOC: EME → EDBD 00:02 → 4WEST 01:29 → EDOF 01:29 → ENRESERV 01:35 → 4WEST 02:20 → ENRESERV 03-29 17:07 → 5EAST 03-29 19:07 → ENPENDDIS 04-01 14:00 → 5EAST 04-01 14:44
PROVIDERS: Emergency Medicine; Hospitalist; Internal Medicine; Internal Medicine Critical Care Medicine; Surgery
PROC: 5A1945Z Respiratory Ventilation, 24-96 Consecutive Hours (ICD-10-PCS; principal; 2017-03-27)
PROC: 0BH17EZ Insertion of Endotracheal Airway into Trachea, Via Natural or Artificial Opening (ICD-10-PCS; 2017-03-27)
DX: J96.21 Acute and chronic respiratory failure with hypoxia (principal); J96.22 Acute and chronic respiratory failure with hypercapnia; J44.1 Chronic obstructive pulmonary disease with (acute) exacerbation; N39.0 Urinary tract infection, site not specified; B96.20 Unspecified Escherichia coli [E. coli] as the cause of diseases classified elsewhere; I13.0 Hypertensive heart and chronic kidney disease with heart failure and stage 1 through stage 4 chronic kidney disease, or unspecified chronic kidney disease; I50.22 Chronic systolic (congestive) heart failure; E11.21 Type 2 diabetes mellitus with diabetic nephropathy; E11.22 Type 2 diabetes mellitus with diabetic chronic kidney disease; N18.3 Chronic kidney disease, stage 3 (moderate); N28.9 Disorder of kidney and ureter, unspecified; E11.65 Type 2 diabetes mellitus with hyperglycemia; T38.0X5A Adverse effect of glucocorticoids and synthetic analogues, initial encounter; E11.319 Type 2 diabetes mellitus with unspecified diabetic retinopathy without macular edema; E11.40 Type 2 diabetes mellitus with diabetic neuropathy, unspecified; I87.2 Venous insufficiency (chronic) (peripheral); I89.0 Lymphedema, not elsewhere classified; I42.0 Dilated cardiomyopathy; I27.20 Pulmonary hypertension, unspecified; I25.10 Atherosclerotic heart disease of native coronary artery without angina pectoris; E78.5 Hyperlipidemia, unspecified; D64.9 Anemia, unspecified; F32.9 Major depressive disorder, single episode, unspecified; D23.72 Other benign neoplasm of skin of left lower limb, including hip; D23.71 Other benign neoplasm of skin of right lower limb, including hip; E66.01 Morbid (severe) obesity due to excess calories; F17.210 Nicotine dependence, cigarettes, uncomplicated; E87.4 Mixed disorder of acid-base balance; Z23 Encounter for immunization; Z88.2 Allergy status to sulfonamides; Z68.36 Body mass index [BMI] 36.0-36.9, adult; Z87.11 Personal history of peptic ulcer disease; Z90.5 Acquired absence of kidney; Z79.4 Long term (current) use of insulin
CPT/HCPCS: 36600; 71010; 80048; 81003; 82550 91; 82803; 82948; 83605; 83735; 83880; 84100; 84478; 84484; 85025; 85027; 87040; 87070; 87077; 87086; 87186; 87205; 87641; 90686; 93005; 93970; 93971; 94002; 94003; 94640; 94640 76; 94799; 97530 GO; 99202; 99281; 99285; C1753; C9113; J0696; J1650; J1815; J1940; J2543; J2704; J2920; J3370; J3475; J7030

== ENCOUNTER 2017-11-20 14:33 | Inpatient (IN) | payer OTHER ==
[~2017-11-20] VITALS: Ht 154.9 cm; Wt 86.0 kg
[~2017-11-20 14:33] MED LIST changes: +ADVAIR HFA120 INHAL1 IH; +CENTRUM SILVER1 EAC4 PO; +COREG3.125 M1 PO; +DUONEB 2.5-0.5 M3 ML AEROSOL; +ISOSORBIDE DINI30 MG PO; +LISINOPRIL5 MG PO; +LO-DOSE ASPIRIN81 M1 PO; +OMEPRAZOLE20 MG PO; +SERTRALINE HCL100 MG PO; +VITAMIN D-32000 UNI2 PO; +ZOLOFT100 MG PO
[2017-11-20 16:51] LABS: HEMATOCRIT 30.9 % (36.0-46.0); HEMOGLOBIN 9.9 G/DL (11.9-15.5); MCH 26.6 PG (29.0-34.0); MCV 83.1 FL (83-99); PLATELET COUNT 441 K/uL (156-360); RBC DIS.WIDTH-CV 17.7 % (11.8-14.6); RBC DIS.WIDTH-SD 53.5 % (39-53); RED BLOOD COUNT 3.72 M/uL (3.80-5.20)
[2017-11-20 17:00] LABS: ALBUMIN 2.1 g/dL (3.2-4.8); CHLORIDE 108 mEq/L (99-109); POTASSIUM 4.7 mEq/L (3.7-5.4); SODIUM 142 mEq/L (136-147)
[2017-11-20 17:02] LABS: GLUCOSE 93 mg/dL (70-99)
[2017-11-20 17:03] LABS: TOTAL PROTEIN 6.9 g/dL (6.4-8.3)
[2017-11-20 17:04] LABS: TOTAL BILIRUBIN 0.3 mg/dL (0.0-1.0)
[2017-11-20 17:06] LABS: ALKALINE PHOSPHATASE 168 IU/L (3-129); CREATININE 1.5 mg/dL (0.6-1.3); GFR ESTIMATE (CALCULATED) 36 mL/min/
[2017-11-20 17:07] LABS: UREA NITROGEN (BUN) 34 mg/dL (9-23)
[2017-11-20 17:08] LABS: AST (GOT) 32 IU/L (2-34)
[2017-11-20 17:09] LABS: ALT (GPT) 18 IU/L (3-49)
[2017-11-20 17:12] LABS: TROP-I INTERPRETATION NEGATIVE; TROPONIN-I < 0.01 ng/mL (0.0-0.30)
[2017-11-20 17:57] LABS: APPEARANCE CLOUDY ((CLEAR)); BILIRUBIN NEGATIVE; BLOOD MODERATE; COLOR YELLOW ((YELLOW)); GLUCOSE (STRIP) NEGATIVE; KETONES NEGATIVE; LEUKOCYTES LARGE; NITRITE POSITIVE; PROTEIN (STRIP) NEGATIVE; SPECIFIC GRAVITY 1.014 (1.000-1.030); UROBILINOGEN 0.2 MG/DL (0.2-1.0)
[2017-11-20 18:31] LABS: BACTERIA 2+ /HPF; EPITHELIAL CELLS 2+ /HPF; MUCUS RARE /LPF; RED BLOOD CELLS 0-5 /HPF (0-5); UCUL ADDED? YES; WHITE BLOOD CELLS 20-30 /HPF (0-5)
[2017-11-20 18:39] LABS: C DIFF TOXIN NEGATIVE (NEGATIVE)
[2017-11-21] VITALS (7 sets, daily range): BP systolic 100–115; BP diastolic 54–76
[2017-11-21 03:12] LABS: BASOPHIL (%) 0.5 % (0-1); BASOPHIL COUNT 0.1 K/uL (0-0.1); EOSINOPHIL (%) 3.1 % (0-5); EOSINOPHIL COUNT 0.3 K/uL (0-0.3); HEMATOCRIT 30.6 % (36.0-46.0); HEMOGLOBIN 9.8 G/DL (11.9-15.5); IMMATURE GRANULOCYTE (%) 0.5 % (0.0-0.7); LYMPHOCYTE COUNT 2.1 K/uL (1.0-2.8); MCH 26.6 PG (29.0-34.0); MCV 83.2 FL (83-99); NEUTROPHIL (%) 67.9 % (45-76); NEUTROPHIL COUNT 7.4 K/uL (1.8-6.4); PLATELET COUNT 328 K/uL (156-360); RBC DIS.WIDTH-CV 17.7 % (11.8-14.6); RED BLOOD COUNT 3.68 M/uL (3.80-5.20); WHITE BLOOD COUNT 10.9 K/uL (4.1-10.2)
[2017-11-21 03:27] LABS: CHLORIDE 113 mEq/L (99-109); SODIUM 142 mEq/L (136-147)
[2017-11-21 03:29] LABS: GLUCOSE 122 mg/dL (70-99)
[2017-11-21 03:33] LABS: CREATININE 1.3 mg/dL (0.6-1.3); GFR ESTIMATE (CALCULATED) 42 mL/min/
[2017-11-21 03:34] LABS: UREA NITROGEN (BUN) 30 mg/dL (9-23)
[2017-11-21] MEDS ORDERED: ADVAIR HFA120 INHAL1 IH (11:08)
[2017-11-21] MEDS ORDERED: FUROSEMIDE20 MG PO (11:08)
[2017-11-21] MEDS ORDERED: CARVEDILOL3.125 MG PO (11:09)
[2017-11-21] MEDS ORDERED: OMEPRAZOLE20 MG PO (11:09)
[2017-11-21] MEDS ORDERED: LISINOPRIL5 MG PO (11:09)
[2017-11-21] MEDS ORDERED: IMDUR30 MG PO (11:09)
[2017-11-21] MEDS ORDERED: ATORVASTATIN CA40 MG PO (11:10)
[2017-11-21] MEDS ORDERED: LEVEMIR FL100 UNIT/1 SC (11:10)
[2017-11-21] MEDS ORDERED: HUMULIN N100 UNIT/2 SC (11:10)
[2017-11-22 04:08] VITALS: BP 110/58
[2017-11-22 06:37] LABS: C-REACTIVE PROTEIN 39.6 MG/L (0-10); CHLORIDE 110 MEQ/L (99-109); CREATININE 1.6 MG/DL (0.6-1.3); GFR ESTIMATE (CALCULATED) 33 mL/min/; GLUCOSE 110 mg/dL (70-99); POTASSIUM 4.4 MEQ/L (3.7-5.4); SODIUM 139 MEQ/L (136-147); UREA NITROGEN (BUN) 27 mg/dL (9-23)
[2017-11-22 06:38] LABS: PREALBUMIN 4.9 mg/dL (10-40)
[2017-11-22 07:22] LABS: HEMATOCRIT 30.7 % (36.0-46.0); HEMOGLOBIN 9.6 G/DL (11.9-15.5); MCH 26.4 PG (29.0-34.0); MCHC 31.3 G/DL (30.0-36.0); MCV 84.3 FL (83-99); PLATELET COUNT 278 K/uL (156-360); RBC DIS.WIDTH-CV 17.8 % (11.8-14.6); RBC DIS.WIDTH-SD 55.5 % (39-53); RED BLOOD COUNT 3.64 M/uL (3.80-5.20); WHITE BLOOD COUNT 8.1 K/uL (4.1-10.2)
[2017-11-22 07:51] VITALS: BP 103/56
[2017-11-22 12:10] VITALS: BP 121/57
[2017-11-22 15:18] VITALS: BP 124/67
[2017-11-22 19:26] VITALS: BP 139/59
[2017-11-23 00:03] VITALS: BP 128/58
[2017-11-23 03:32] VITALS: BP 124/56
[2017-11-23 06:01] LABS: BASOPHIL (%) 0.6 % (0-1); EOSINOPHIL (%) 4.9 % (0-5); EOSINOPHIL COUNT 0.3 K/uL (0-0.3); HEMATOCRIT 30.4 % (36.0-46.0); HEMOGLOBIN 9.3 G/DL (11.9-15.5); IMMATURE GRANULOCYTE (%) 0.4 % (0.0-0.7); LYMPHOCYTE (%) 26.6 % (15-42); LYMPHOCYTE COUNT 1.8 K/uL (1.0-2.8); MCH 26.1 PG (29.0-34.0); MCHC 30.6 G/DL (30.0-36.0); MCV 85.4 FL (83-99); MONOCYTE COUNT 0.5 K/uL (0-0.8); NEUTROPHIL (%) 60.5 % (45-76); NEUTROPHIL COUNT 4.1 K/uL (1.8-6.4); PLATELET COUNT 286 K/uL (156-360); RBC DIS.WIDTH-CV 17.7 % (11.8-14.6); RBC DIS.WIDTH-SD 55.5 % (39-53); RED BLOOD COUNT 3.56 M/uL (3.80-5.20); WHITE BLOOD COUNT 6.7 K/uL (4.1-10.2)
[2017-11-23 06:45] LABS: CHLORIDE 110 MEQ/L (99-109); CREATININE 1.3 MG/DL (0.6-1.3); GFR ESTIMATE (CALCULATED) 42 mL/min/; GLUCOSE 112 mg/dL (70-99); MAGNESIUM 1.1 mg/dl (1.3-2.7); POTASSIUM 4.2 MEQ/L (3.7-5.4); SODIUM 140 MEQ/L (136-147); UREA NITROGEN (BUN) 24 mg/dL (9-23)
[2017-11-23 07:02] VITALS: BP 100/61
[2017-11-23 11:31] VITALS: BP 102/56
[2017-11-23 11:57] LABS: HEMOGLOBIN A1c (GLYCOHEMOGLOB) 6.7 % (Below 5.7)
[2017-11-23 15:07] VITALS: BP 104/61
[2017-11-23 20:21] VITALS: BP 130/57
[2017-11-24] VITALS (7 sets, daily range): BP systolic 116–145; BP diastolic 51–71
[2017-11-24 16:02] LABS: HEMATOCRIT 33.8 % (36.0-46.0); HEMOGLOBIN 10.5 G/DL (11.9-15.5); MCH 26.8 PG (29.0-34.0); MCHC 31.1 G/DL (30.0-36.0); MCV 86.2 FL (83-99); PLATELET COUNT 292 K/uL (156-360); RBC DIS.WIDTH-SD 56.3 % (39-53); RED BLOOD COUNT 3.92 M/uL (3.80-5.20); WHITE BLOOD COUNT 7.9 K/uL (4.1-10.2)
[2017-11-24 16:24] LABS: CHLORIDE 109 MEQ/L (99-109); CREATININE 1.3 MG/DL (0.6-1.3); GFR ESTIMATE (CALCULATED) 42 mL/min/; POTASSIUM 4.7 MEQ/L (3.7-5.4); SODIUM 137 MEQ/L (136-147); UREA NITROGEN (BUN) 20 mg/dL (9-23)
[2017-11-24 16:40] LABS: GLUCOSE 184 mg/dL (70-99)
[2017-11-25 03:37] VITALS: BP 132/33
[2017-11-25] MEDS ORDERED: DIFLUCAN200 MG PO (11:30)
[2017-11-25] MEDS ORDERED: DURICEF500 MG PO (11:30)
[2017-11-25] MEDS ORDERED: DUONEB 2.5-0.5 M3 ML AEROSOL (11:31)
[2017-11-25] MEDS ORDERED: SPIRIVA RESPIMAT4 GM IH (11:31)
[2017-11-25] MEDS ORDERED: TYLENOL REGULA325 MG PO (11:36)
[2017-11-25] MEDS ORDERED: HYDROCODON-ACE1 EAC7 PO ×2 (11:37→11:42)
[2017-11-25] MEDS ORDERED: HYDROCODON-ACE1 EAC9 PO ×2 (11:37→11:42)
[2017-11-25 11:38] VITALS: BP 134/66
[2017-11-25] MEDS ORDERED: NOVOLOG 10100 UNITS/ SC (11:38)
[2017-11-25] MEDS ORDERED: SANTYL30 GM TP (13:56)
[2017-11-25] MEDS ORDERED: NYSTATIN15 GM TP (13:56)
[2017-11-25 16:19] VITALS: BP 121/64
== END 2017-11-25 16:40 | DRG 871 ==
LOC: EME 14:33 → 5SOUTH 22:18 → EDOF 22:18 → ENRESERV 22:19 → 5SOUTH 23:33
PROVIDERS: Emergency Medicine; Internal Medicine; Nurse Practitioner; Physician Assistant; Physician Assistant Medical
DX: A41.9 Sepsis, unspecified organism (principal); N39.0 Urinary tract infection, site not specified; B96.20 Unspecified Escherichia coli [E. coli] as the cause of diseases classified elsewhere; B96.1 Klebsiella pneumoniae [K. pneumoniae] as the cause of diseases classified elsewhere; L03.113 Cellulitis of right upper limb; N17.9 Acute kidney failure, unspecified; L89.323 Pressure ulcer of left buttock, stage 3; L89.623 Pressure ulcer of left heel, stage 3; L89.109 Pressure ulcer of unspecified part of back, unspecified stage; S71.102A Unspecified open wound, left thigh, initial encounter; S31.104A Unspecified open wound of abdominal wall, left lower quadrant without penetration into peritoneal cavity, initial encounter; E11.42 Type 2 diabetes mellitus with diabetic polyneuropathy; I13.0 Hypertensive heart and chronic kidney disease with heart failure and stage 1 through stage 4 chronic kidney disease, or unspecified chronic kidney disease; E11.22 Type 2 diabetes mellitus with diabetic chronic kidney disease; N18.3 Chronic kidney disease, stage 3 (moderate); I50.22 Chronic systolic (congestive) heart failure; E11.319 Type 2 diabetes mellitus with unspecified diabetic retinopathy without macular edema; D63.1 Anemia in chronic kidney disease; E87.2 Acidosis; Z66 Do not resuscitate; E83.42 Hypomagnesemia; E86.0 Dehydration; I25.5 Ischemic cardiomyopathy; I42.0 Dilated cardiomyopathy; L30.4 Erythema intertrigo; T76.01XA Adult neglect or abandonment, suspected, initial encounter; R19.7 Diarrhea, unspecified; I27.20 Pulmonary hypertension, unspecified; B35.6 Tinea cruris; I25.10 Atherosclerotic heart disease of native coronary artery without angina pectoris; I87.8 Other specified disorders of veins; I89.0 Lymphedema, not elsewhere classified; J44.9 Chronic obstructive pulmonary disease, unspecified; R32 Unspecified urinary incontinence; R15.9 Full incontinence of feces; L24.9 Irritant contact dermatitis, unspecified cause; E78.5 Hyperlipidemia, unspecified; L22 Diaper dermatitis; R63.3 Feeding difficulties; H54.62 Unqualified visual loss, left eye, normal vision right eye; I25.2 Old myocardial infarction; F41.8 Other specified anxiety disorders; F60.7 Dependent personality disorder; F17.210 Nicotine dependence, cigarettes, uncomplicated; E66.01 Morbid (severe) obesity due to excess calories; Z68.36 Body mass index [BMI] 36.0-36.9, adult; R52 Pain, unspecified; Z74.01 Bed confinement status; Z87.442 Personal history of urinary calculi; Z90.5 Acquired absence of kidney; Z96.652 Presence of left artificial knee joint; Z90.710 Acquired absence of both cervix and uterus; Z79.4 Long term (current) use of insulin; Z79.82 Long term (current) use of aspirin; Z53.20 Procedure and treatment not carried out because of patient's decision for unspecified reasons; Z87.01 Personal history of pneumonia (recurrent); Z88.2 Allergy status to sulfonamides
CPT/HCPCS: 71045; 73630; 73700; 80048; 80053; 81003; 82948; 83036; 83605; 83735; 84134; 84484; 85025; 85027; 85651; 86140; 87040; 87077; 87086; 87186; 87493; 87506; 93005; 93971; 94640; 94799; 97530 GO; 97530 GP; 99281; 99285; J0690; J0696; J1650; J1815; J3475; J7120